=== PATIENT | male | born 1995 | race Caucasian/White ===

== ENCOUNTER → 2016-09-06 | Outpatient (CLI) | payer OTHER ==
--- NOTE | 2016-09-06 16:30 | CPEEG ---
[f rep st] ELECTROENCEPHALOGRAM A 4-HOUR VIDEO EEG. DATE OF STUDY: 09/06/2016 DATE OF INTERPRETATION: 09/06/2016 INTERPRETATION: This 4-hour video EEG recording is normal. There were no potentially epileptogenic abnormalities present during the awake or sleep recordings. During the video EEG monitoring marga brown, the patient did not have any clinical events. REPORT: This 4-hour video EEG contains 10 Hz alpha activity over the posterior head regions. There was no abnormal activation at rest, during photic stimulation or hyperventilation. The patient bec trevon drowsy, and fell into sustained sleep during the study. There was no abnormal activation during drowsiness, sustained sleep or during times of arousal. The patient did not have any clinical even ts during the video EEG monitoring session. /[id number]/MODL
== END ==
LOC: FCPNEURO 09:09
PROVIDERS: ATTEND Psychiatry & Neurology Neurology
DX: R55 Syncope and collapse (principal)

== ENCOUNTER 2016-12-25 03:34 | Emergency (ER) | payer OTHER ==
--- NOTE | 2016-12-25 03:39 | EDPHY ---
H & P HPI/ROS: HPI CHIEF COMPLAINT: Multiple complaints, sore throat, can't sleep, anxiety, headache HISTORY OF PRESENT ILLNESS: This patient 21-year-old male, he presents emergency room by private vehicle for main complaint of sore throat. Patient states for the past 24 hours she has had increasing sore throat unable to sleep. He states poor sleep is causing him anxiety and a headache. He does have a history of migraine headaches and epilepsy but does not take any seizure medications. Decided come the emergency room after he tossed and turned all night and could not sleep in his throat was hurting him worse. No fever. No neck pain no neck stiffness. No meningeal signs. Denies productive cough. He tells me just moved here 3 days ago from [place]. He has relocated to [place] Past Medical History: Migraine headaches and epilepsy Past Surgical History: Denies recent surgery Social History: Smokes tobacco, denies alcohol, had marijuana edible today Family History: Noncontributory ROS REVIEW OF SYSTEMS: A comprehensive 10 point review of systems is otherwise negative aside from elements mentioned in the history of present illness. Exam Constitutional appears well nontoxic, triage nursing summary reviewed, vital signs reviewed, awake/alert. Eyes normal conjunctivae and sclera, EOMI, PERRLA. HENT posterior pharynx is erythematous, no exudate, uvula midline, no asymmetrical swelling, both tonsillar beds appear slightly prominent however no significant swelling, no change in voice, no Wilfrido's, no drooling, no trismus, moist mucus membranes, no epistaxis, neck supple/ no meningismus, no raccoon eyes. Respiratory clear to auscultation bilaterally, normal breath sounds, no respiratory distress, no wheezing. Cardiovascular rate normal, regular rhythm, no murmur, no edema, distal pulses normal. Gastrointestinal soft, non-tender, no rebound, no guarding, normal bowel sounds, no distension, no pulsatile mass. Genitourinary no CVA tenderness. Musculoskeletal no midline vertebral tenderness, full range of motion, no calf swelling, no tenderness of extremities, no meningismus, good pulses, neurovascularly intact. Skin pink, warm, & dry, no rash, skin atraumatic. Neurologic awake, alert and oriented x 3, AAOx3, moves all 4 extremities equally, motor intact, sensory intact, CN II-XII intact, normal cerebellar, normal vision, normal speech. Psychiatric normal mood/affect. Heme/Lymph/Immune no lymphadenopathy. 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 Re-evaluate shortly. Re-evaluation: 0406: This time this patient appears well nontoxic no acute distress drinking water in the room. 1632: Rapid strep negative. Will place this patient on Zofran for nausea, Decadron for swelling and pain control, azithromycin as it is possible that he does have strep pharyngitis based on the beefy red, his tonsillar bed. Strep culture follow-up. He appears well nontoxic safe for discharge. He understands return emergency room if develops any worsening symptoms questions or concerns. Source: Patient Constitutional: Initial Vital Signs Temperature (C) 37.4 C 12/25/16 03:38 Heart Rate 116 H 12/25/16 03:38 Respiratory Rate 16 12/25/16 03:38 Blood Pressure 126/78 H 12/25/16 03:38 O2 Sat (%) 95 12/25/16 03:38 O2 Delivery Mode Room Air Allergies/Adverse Reactions: No Known Allergies Allergy (Unverified 12/25/16 03:38) Home Medications: Medication Instructions Recorded AZITHROMYCIN [Z-PACK] 250 mg PO DAILY #6 tab 12/25/16 Dexamethasone [Decadron 4 MG (*)] 4 mg PO DAILY #4 tab 12/25/16 Ibuprofen [Motrin (*)] 800 mg PO Q6-8PRN #7 tab 12/25/16 Ondansetron HCl [Zofran] 4 mg PO Q4-6PRN PRN #10 tablet 12/25/16 Medical Decision Making - Data Points Laboratory Results: 12/25/16 12/25/16 Unknown 03:55 Group A Strep Screen NEGATIVE (NEGATIVE) Group A Strep DNA Pending Medications Given: Discontinued Medications Hydrocodone Bitart/Acetaminophen ([place] 5/325) 1 tab PO EDNOW ONE Stop: 12/25/16 04:04 Last Admin: 12/25/16 04:08 Dose: 1 tab Dexamethasone (Decadron) 8 mg PO EDNOW ONE Stop: 12/25/16 04:04 Last Admin: 12/25/16 04:09 Dose: 8 mg Ondansetron HCl (Zofran Odt) 4 mg PO EDNOW ONE Stop: 12/25/16 04:04 Last Admin: 12/25/16 04:09 Dose: 4 mg Departure - Departure Disposition: Home, Routine, Self-Care Clinical Impression: Acute pharyngitis Qualifiers: Pharyngitis/tonsillitis etiology: unspecified etiology Qualified Code(s): J02.9 - Acute pharyngitis, unspecified Condition: Good Instructions: Pharyngitis (ED), Strep Throat (ED) Additional Instructions: 1. Drink lots of fluids stay well-hydrated. 2. Return emergency room if you have worsening pain, high fever or vomiting. Referrals: NONE *PRIMARY CARE P,. [Primary Care Provider] - As per Instructions Prescriptions: AZITHROMYCIN [Z-PACK] 250 mg PO DAILY #6 tab Dexamethasone [Decadron 4 MG (*)] 4 mg PO DAILY #4 tab Ibuprofen [Motrin (*)] 800 mg PO Q6-8PRN #7 tab Ondansetron HCl [Zofran] 4 mg PO Q4-6PRN PRN #10 tablet PRN Reason: Nausea/Vomiting, Use 1st
[2016-12-25] MEDS ORDERED: ONDANSETRON DISINTEGRATING 4 MG TAB PO ONE (04:03)
[2016-12-25] MEDS ORDERED: HYDROCODONE/APAP 5/325 TAB PO ONE (04:03)
[2016-12-25] MEDS ORDERED: DEXAMETHASONE 4 MG TAB PO ONE (04:03)
[2016-12-25 04:40] VITALS: BP 123/80; PULSE 89; RESP 18; TEMP 99.9; O2SAT 96
== END 2016-12-25 04:39 | disposition home or self-care (01) ==
DX: J02.9 Acute pharyngitis, unspecified (principal)

== ENCOUNTER → 2018-09-05 | Outpatient (CLI) | payer OTHER | LOC: FIMAGING 11:38 | PROVIDERS: ATTEND Registered Nurse | DX: S62.392A Other fracture of third metacarpal bone, right hand, initial encounter for closed fracture (principal) ==